=== PATIENT | female | born 1955 | race Caucasian/White ===

== ENCOUNTER 2024-09-24 20:31 | Emergency (ER) | payer MEDICARE, SELFPAY ==
[2024-09-24 20:39] VITALS: BP 160/90
--- NOTE | 2024-09-24 21:27 | ED.GENMED ---
History of Present Illness
General
Chief Complaint: Eye Problems
Source: patient and family
Time Seen by Provider: 09/24/24 21:02
History of Present Illness
History of Present Illness:
Note:
CHIEF COMPLAINT(S)
Eye irritation and possible retained gas permeable contact lens.
HISTORY OF PRESENT ILLNESS
The patient is a 69-year-old female who presented with a concern of a possible retained gas permeable contact lens in her right eye. The patient reported that she drove from [place] earlier today and during the drive, she felt her eyes
becoming dry. Upon attempting to remove her contacts, the right lens felt stuck and she was uncertain if it was successfully removed. She expressed feeling a possible edge but was unable to retrieve the lens despite flushing with warm water. She
described a 'foreign body sensation' in the right eye, coupled with mild irritation but not pain, which persisted even after multiple attempts at flushing and manipulating the eyelid. The patient denied any significant visual disturbances but noted
that the sensation of having something in the eye remained localized to the upper or side region of the eyelid. Fluorescein staining was applied, which did not reveal any abrasion or foreign body adherence on the cornea.
PHYSICAL EXAM
General: Alert, no acute distress.
Eye, Ears, Nose, Mouth, and Throat: The right eye examination showed no visible foreign body or contact lens on the cornea. Fluorescein staining revealed no corneal abrasions or foreign objects. Periorbital eyelid manipulation and examination
suggested irritation likely secondary to manipulation but no distinct foreign body presence.
Remaining systems unremarkable as per default template.
PLAN
1. Monitor the eye for persistent irritation and avoid placing the contact lens back in the affected eye until symptoms fully resolve.
2. If the irritation persists beyond , follow up with an facilities maintenance manager to ensure that there are no retained foreign bodies at a deeper location and for further evaluation if needed.
3. Reassure the patient about insurance coverage indicating that the eye irritation complaint is sufficient for coverage of the emergency visit.
DIFFERENTIAL DIAGNOSIS
The Differential Diagnosis includes, in no particular order and is not limited to:
1. Foreign body sensation without retained foreign object
2. Corneal abrasion
3. Conjunctivitis
4. Dry eye syndrome
5. Contact lens-associated keratopathy
6. Subconjunctival foreign body
7. Allergic conjunctivitis
8. Eye strain
9. Eyelid inflammation (Blepharitis)
10. Episcleritis
Disposition:
SUMMARY OF ENCOUNTER
A 69-year-old female presented to the emergency department with concerns of a possible retained gas permeable contact lens in her right eye and associated irritation. On examination, no foreign body or retained contact lens was identified in the
eye. Fluorescein staining was performed and confirmed the absence of corneal abrasions or ulcers. The patient noted a 'foreign body sensation' and mild irritation in the right eye. Management focused on reassurance and symptomatic treatment, given
the absence of significant pathology on examination.
DISPOSITION
The patient was discharged with instructions to monitor symptoms.
PLAN
1. Reassurance was provided to the patient regarding the findings and management in the emergency department.
2. Recommendation of using lubricating eye drops for symptomatic relief.
3. Advised against the replacement of the contact lens in the right eye until symptoms have resolved fully.
4. Follow-up with an facilities maintenance manager if irritation persists beyond for further evaluation.
PATIENT EDUCATION AND COUNSELING
The patient was educated on the findings of the examination, the use of lubricating drops, and the importance of consulting with an facilities maintenance manager if symptoms do not improve. She was also advised not to replace her contact lenses until clearance by
a specialist.
FOLLOW-UP INSTRUCTIONS
The patient should follow up with an facilities maintenance manager if her eye irritation persists beyond .
MEDICATION RECONCILIATION
Use of lubricating eye drops was recommended.
MEDICAL DECISION MAKING
-Number and Complexity of Problems Addressed: Condition affecting care includes a foreign body sensation without a retained foreign object. Differential diagnosis considered were corneal abrasion, conjunctivitis, dry eye syndrome, contact
lens-associated keratopathy, subconjunctival foreign body, allergic conjunctivitis, eye strain, eyelid inflammation (blepharitis), and episcleritis.
-Risk:
Prescription drug management was considered with the recommendation of lubricating eye drops.
Consideration of Admission/Observation: Escalation of care including admission/observation was considered given the complexity and risk of the patients presenting complaint. However, ultimately the patient is safe for outpatient management with
close follow-up. Reasoning: Work-up reassuring, does not reveal any acute life/organ-threatening processes, patients symptoms are well controlled upon reevaluation, reexamination is reassuring, and the patient is agreeable with discharge and
reliable for follow-up.
DIAGNOSIS
Foreign body sensation in the eye, unspecified eye � H57.1
Past History
Past History
ED Past Medical History: Other (seasonal allergies)
Social History
Tobacco: Non-smoker
Alcohol: Occasional
Living: with family
Employment: Retired
Family History
Family History: Other (Noncontributory)
Phy Exam
Physical Exam
Physical Exam:
.
Course
Vital Signs
Initial and Last Documented VS:
Initial Vital Signs
Temp Pulse Resp BP Pulse Ox
98.0 F 80 18 160/90 99
09/24/24 20:39 09/24/24 20:39 09/24/24 20:39 09/24/24 20:39 09/24/24 20:39
Last Documented Vital Signs
Temp Pulse Resp BP Pulse Ox
98.0 F 80 18 160/90 99
09/24/24 20:39 09/24/24 20:39 09/24/24 20:39 09/24/24 20:39 09/24/24 20:39
*Pulse Oximetry
SaO2: 99
Oxygen Mode of Delivery: Room air
Patient hypoxic: no
*Critical Care Note
Total Time (30-74mins, 75-104mins- exclusive of procedures): Not Applicable
ED Attending Note
-
Portions of this chart may have been created with voice recognition software.� Occasional wrong word or��sound alike� substitutions may have occurred due to the inherent limitations of voice recognition software.
Discharge Plan
Departure
Patient Disposition: Home (Routine Discharge)
Date of Disposition: 09/24/24
Time of Disposition: 21:27
Patient with high blood pressure during this ER visit?: Yes
Discharge Problem:
Foreign body sensation, unspecified eye, Irritation of eye
Instructions: BLOOD PRESSURE
Prescriptions:
No Action
fexofenadine 180 MG tablet
180 mg PO DAILY
montelukast 10 MG tablet
10 mg PO DAILY
fluticasone propionate [Flonase Allergy Relief] 9.9 ML spray,suspension
1 spray NS BID
pantoprazole 40 MG tablet,delayed release (DR/EC)
40 mg PO DAILY Qty: 30 0RF
Referrals:
NONE,* [Family Provider, Internal Medicine]
Activity Restrictions/Additional Instructions:
If any feeling of irritation to your eye persist, please see your facilities maintenance manager and follow-up in the next 3 to 5 days. Return immediately for blurred vision, drainage from the eye, worsening pain or any other concerns.
Interventions
Interventions:
*Risk Screen - Suicide Last Done: 09/24/24 20:39
*General Assessment Last Done: 09/24/24 20:53
*Neglect/Abuse Screening Last Done: 09/24/24 20:39
*ED- Fall Risk Assessment Last Done: 09/24/24 20:53
Discharge Date and Time
Print Language: DIVEHI
== END 2024-09-24 21:42 | disposition home or self-care (01) ==
LOC: EMR 20:31
PROVIDERS: EMERGENCY PHYSICIAN Emergency Medicine
DX: H57.8A1 Foreign body sensation, right eye (principal); H57.89 Other specified disorders of eye and adnexa
CPT/HCPCS: 99283